=== PATIENT | female | born 1955 | race Two or more races ===

== ENCOUNTER 2017-06-17 17:51 | Emergency (ER) | payer OTHER ==
[~2017-06-17] VITALS: Ht 165.1 cm; Wt 104.3 kg
[~2017-06-17 17:51] MED LIST: IBUPROFEN600 MG ORAL
[2017-06-17 19:10] VITALS: BP 145/89
--- NOTE | 2017-06-17 19:34 | Emergency Room Report ---
History of Present Illness General Chief Complaint: Pain Source: Patient Present Illness HPI 61 YO Female presents to the ED c/o Swollen lumps to the dorsal wrists bilaterally. She reports that with increased movement of her wrist she notices localized pain as well as swelling. Patient reports symptoms have progressed most prominently in the right wrist over the course of this past week. 6/10 in severity pain with palpation. 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 She denies erythema, fevers, chills, history of gout or arthritis. Patient denies appreciable trauma or fall. Patient reports that she has noticed swelling in the wrist in the past but usually resolves after several days. Denies CP, Palpitations, LOC, AMS, dizziness, Changes in Vision, Sensation, paresthesias, or a sudden severe headache. Allergies: Coded Allergies: No Known Allergies (Unverified , 03/09/16) Patient History Past Medical History: see triage record Past Surgical History: none Pertinent Family History: none Reviewed Nursing Documentation: PMH: Agreed, PSxH: Agreed Nursing Documentation-PMH Past Medical History: No Stated History Review of Systems All Other Systems: negative except mentioned in HPI Physical Exam Vital Signs Date Time Temp Pulse Resp B/P (MAP) Pulse Ox O2 Delivery O2 Flow Rate FiO2 06/17/17 17:56 97.5 75 20 182/98 96 Room Air Sp02 EP Interpretation: reviewed, normal General Appearance: no apparent distress, alert, GCS 15, non-toxic Head: normocephalic, atraumatic ENT: hearing grossly normal, normal voice Neck: full range of motion Respiratory: lungs clear, normal breath sounds, speaking full sentences Cardiovascular #1: regular rate, rhythm, normal capillary refill Cardiovascular #2: 2+ radial (R), 2+ radial (L) Rectal: deferred Genitourinary: normal inspection Musculoskeletal: back normal, gait/station normal, normal range of motion, tender - localized cyst on dorsal wrists bilaterally. ( see skin assessment) Neurologic: alert, oriented x3, responsive, motor strength/tone normal, sensory intact, speech normal, grossly normal Psychiatric: judgement/insight normal Skin: normal color, no rash, warm/dry, well hydrated, other - Well circumscribed Mass is freely mobile nodule that is approximately 1 cm in size on the dorsal right wrist, and a 0.4cm mass on the left dorsal wrist, no erythema, no increased temperature to palpation, FROM. NVI. Lymphatic: no adenopathy Medical Decision Making PA Attestation Dr. Treviño is my supervising Physician whom patient management has been discussed with. Diagnostic Impression: Primary Impression: Ganglion cyst of both wrists ER Course 61 YO Female presents to the ED c/o Swollen lumps to the dorsal wrists bilaterally. She reports that with increased movement of her wrist she notices localized pain as well as swelling. Patient reports symptoms have progressed most prominently in the right wrist over the course of this past week. 6/10 in severity pain with palpation. 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 She denies erythema, fevers, chills, history of gout or arthritis. Patient denies appreciable trauma or fall. Patient reports that she has noticed swelling in the wrist in the past but usually resolves after several days. Denies CP, Palpitations, LOC, AMS, dizziness, Changes in Vision, Sensation, paresthesias, or a sudden severe headache. Ddx considered but are not limited to Fracture, dislocation, contusion, abscess , Sprain/Strain/Spasm, Ganglion cyst Vital signs: are WNL, pt. is afebrile H&PE are most consistent with ganglion cyst no neurovascular compromise, no evidence of infection or lesions. - Well circumscribed Mass is freely mobile nodule that is approximately 1 cm in size on the dorsal right wrist, and a 0.4cm mass on the left dorsal wrist, no erythema, no increased temperature to palpation, FROM. NVI. ORDERS: -none required at this time dx is clinical ED INTERVENTIONS: -Regulo wrap applied by electrophysiology technologist. Pt. remains neurovascularly intact. DISCHARGE: At this time pt. is stable for d/c to home. Will provide printed patient care instructions, and any necessary prescriptions. Care plan and follow up instructions have been discussed with the patient prior to discharge. Last Vital Signs Date Time Temp Pulse Resp B/P (MAP) Pulse Ox O2 Delivery O2 Flow Rate FiO2 06/17/17 17:56 97.5 75 20 182/98 96 Room Air Disposition: HOME, SELF-CARE Condition: Stable Scripts Ibuprofen* (MOTRIN*) 600 Mg Tablet 600 MG ORAL THREE TIMES A DAY, #30 TAB 0 Refills Prov: Leilani Bell 06/17/17 Patient Instructions: Ganglion Cyst Additional Instructions: Take medications as directed. Follow up with a Primary Care Provider in 3-5 days, even if your symptoms have resolved. --Please review list of primary care clinics, if you do not already have a primary care provider Return sooner to ED if new symptoms occur, or current symptoms become worse. - Please note that this Emergency Department Report was dictated using [employer] technology software, occasionally this can lead to erroneous entry secondary to interpretation by the dictation equipment. Leilani Bell Jun 17, 2017 19:34
[2017-06-17] MEDS ORDERED: IBUPROFEN600 MG ORAL (19:35)
[2017-06-17 19:45] VITALS: BP 138/84
[2017-06-17 19:53] VITALS: BP 138/84
== END 2017-06-17 19:53 | disposition home or self-care (01) ==
LOC: EMR 18:10
DX: M67.432 Ganglion, left wrist (principal); M67.431 Ganglion, right wrist
CPT/HCPCS: 99283